=== PATIENT | male | born 1970 | race Caucasian/White ===

== ENCOUNTER → 2022-02-05 | Day surgery (SDC) | payer OTHER ==
[~2022-02-05] MED LIST: GABAPENTIN300 MG PO; HYDROCHLOROTHIA25 MG PO; HYDROCODON-ACE1 EAC6 PO; MELOXICAM7.5 MG PO; TIZANIDINE HCL4 MG PO; ZETIA10 MG PO; ZYRTEC10 MG PO
== END | disposition home or self-care (01) ==
LOC: OR 01-28 09:00
DX: M51.16 Intervertebral disc disorders with radiculopathy, lumbar region (principal); F17.290 Nicotine dependence, other tobacco product, uncomplicated; Z88.8 Allergy status to other drugs, medicaments and biological substances
CPT/HCPCS: 77001; J1040; Q9967